=== PATIENT | male | born 1975 | race Caucasian/White ===

== ENCOUNTER 2017-07-21 16:52 | Emergency (ER) | payer OTHER ==
[~2017-07-21] VITALS: Ht 188 cm; Wt 90.7 kg
[~2017-07-21 16:52] MED LIST: ADDERALL 10 MG10 MG PO; AMBIEN5 MG PO; ANUSOL-HC25 MG RECTAL; COLACE100 MG PO; HYDROCODONE-AP1 EAC6 PO; KEFLEX500 MG PO
[2017-07-21] MEDS ORDERED: BACTRIM DS TAB1 EACH PO (18:11)
[2017-07-21 18:26] VITALS: BP 142/96
== END 2017-07-21 18:27 | disposition home or self-care (01) ==
LOC: M.ERS 16:52
DX: L03.011 Cellulitis of right finger (principal); F12.10 Cannabis abuse, uncomplicated